=== PATIENT | male | born 1995 ===

== ENCOUNTER 2017-05-04 00:36 | Emergency (ER) | payer OTHER ==
[2017-05-04] MEDS ORDERED: ONDANSETRON 4 MG/2 ML VIAL IVP ONE (00:38)
[2017-05-04] MEDS ORDERED: NS 1,000 ML IV ONE (00:38)
--- NOTE | 2017-05-04 00:40 | EDPHY ---
H & P HPI/ROS: HPI CHIEF COMPLAINT: Alcohol Intoxication HISTORY OF PRESENT ILLNESS: This patient is a 21-year-old male, presents emergency room acute alcohol intoxication by EMS. Patient was drinking gin and vodka this evening. Large amount. His girlfriend called 911 as he was vomiting unable to care for himself. Patient presents emergency room highly intoxicated alcohol. Unable to participate in exam. Past Medical History: Unknown medical history Past Surgical History: Unknown surgical Social History: Large amount of alcohol seeking. Family History: Unknown ROS REVIEW OF SYSTEMS: Limited due to patient's clinical state Exam Constitutional Intoxicated, triage nursing summary reviewed, vital signs reviewed, Sleepy, smells of alcohol Eyes normal conjunctivae and sclera, horizontal beating nystagmus consistent acute alcohol intoxication, otherwise pupils equal and react to light HENT normal inspection, atraumatic, moist mucus membranes, no epistaxis, neck supple/ no meningismus, no raccoon eyes. Respiratory clear to auscultation bilaterally, normal breath sounds, no respiratory distress, no wheezing. Cardiovascular rate normal, regular rhythm, no murmur, no edema, distal pulses normal. Gastrointestinal soft, non-tender, no rebound, no guarding, normal bowel sounds, no distension, no pulsatile mass. Genitourinary no CVA tenderness. Musculoskeletal no midline vertebral tenderness, full range of motion, no calf swelling, no tenderness of extremities, no meningismus, good pulses, neurovascularly intact. Skin pink, warm, & dry, no rash, skin atraumatic. Neurologic sleepy, intoxicated with alcohol,, alert and oriented x 3, AAOx3, moves all 4 extremities equally, motor intact, sensory intact, CN II-XII intact , , normal vision, normal speech. Psychiatric normal mood/affect. Heme/Lymph/Immune no lymphadenopathy. Differential Diagnosis: Includes but is not limited to in a particular order acute alcohol intoxication, alcohol abuse, dehydration, electrolyte abnormality , nausea vomiting from acute alcohol intoxication Medical Decision Making: Plan for patient IV establishment IV fluid bolus, 4 mg IV Zofran for nausea, check basic blood work including electrolytes, serum alcohol level. Monitor for worsening of condition. Monitor for sobriety. Re-evaluation: Serum alcohol 270. Time 1:24 a.m.. 0412: Patient up ambulating stable gait. Clinically sober. Answered all his questions. He speaking coherently answer my questions appropriately. Safe for discharge. Source: EMS Constitutional: Initial Vital Signs Temperature (C) 36.7 C 05/04/17 00:52 Heart Rate 79 05/04/17 00:52 Respiratory Rate 16 05/04/17 00:52 Blood Pressure 109/63 05/04/17 00:52 O2 Sat (%) 96 05/04/17 00:52 O2 Delivery Mode Room Air O2 (L/minute) 2 Allergies/Adverse Reactions: No Known Allergies Allergy (Unverified 05/04/17 00:45) Home Medications: Medication Instructions Recorded NK [No Known Home Meds] 05/04/17 Medical Decision Making - Data Points Laboratory Results: Laboratory Results 05/04/17 00:40 05/04/17 00:40 05/04/17 05/04/17 00:40 00:40 WBC 13.48 10^3/uL H 10^3/uL (3.80-9.50) RBC 4.95 10^6/uL 10^6/uL (4.40-6.38) Hgb 16.4 g/dL g/dL (13.7-17.5) Hct 44.0 % % (40.0-51.0) MCV 88.9 fL fL (81.5-99.8) MCH 33.1 pg pg (27.9-34.1) MCHC 37.3 g/dL H g/dL (32.4-36.7) RDW 12.8 % % (11.5-15.2) Plt Count 248 10^3/uL 10^3/uL (150-400) MPV 10.8 fL fL (8.7-11.7) Neut % (Auto) 46.5 % % (39.3-74.2) Lymph % (Auto) 39.1 % % (15.0-45.0) [place] % (Auto) 9.1 % % (4.5-13.0) Eos % (Auto) 4.3 % % (0.6-7.6) Baso % (Auto) 0.6 % % (0.3-1.7) Nucleat RBC Rel Count 0.0 % % (0.0-0.2) Absolute Neuts (auto) 6.28 10^3/uL 10^3/uL (1.70-6.50) Absolute Lymphs (auto) 5.27 10^3/uL H 10^3/uL (1.00-3.00) Absolute Monos (auto) 1.22 10^3/uL H 10^3/uL (0.30-0.80) Absolute Eos (auto) 0.58 10^3/uL H 10^3/uL (0.03-0.40) Absolute Basos (auto) 0.08 10^3/uL 10^3/uL (0.02-0.10) Absolute Nucleated RBC 0.00 10^3/uL 10^3/uL (0-0.01) Immature Gran % 0.4 % % (0.0-1.1) Immature Gran # 0.05 10^3/uL 10^3/uL (0.00-0.10) Sodium 149 mEq/L H mEq/L (134-144) Potassium 4.0 mEq/L mEq/L (3.5-5.2) Chloride 108 mEq/L mEq/L (97-110) Carbon Dioxide 20 mEq/l L mEq/l (22-31) Anion Gap 21 mEq/L H mEq/L (8-16) BUN 11 mg/dL mg/dL (7-23) Creatinine 0.7 mg/dL mg/dL (0.7-1.3) Estimated GFR > 60 Glucose 130 mg/dL H mg/dL (70-100) Calcium 9.6 mg/dL mg/dL (8.5-10.4) Ethyl Alcohol 270 mg/dL H mg/dL (0-10) Medications Given: Discontinued Medications Sodium Chloride (Ns) 1,000 mls @ 0 mls/hr IV EDNOW ONE; Wide Open PRN Reason: Protocol Stop: 05/04/17 00:39 Last Admin: 05/04/17 00:41 Dose: 1,000 mls Ondansetron HCl (Zofran) 4 mg IVP EDNOW ONE Stop: 05/04/17 00:39 Last Admin: 05/04/17 00:40 Dose: 4 mg Departure - Departure Disposition: Home, Routine, Self-Care Clinical Impression: Alcohol intoxication Qualifiers: Complication of substance-induced condition: uncomplicated Qualified Code(s): F10.920 - Alcohol use, unspecified with intoxication, uncomplicated Condition: Good Instructions: Alcohol Intoxication (ED), Abuse of Alcohol (ED) Referrals: Patient,NotPresent [Primary Care Provider] - As per Instructions
[2017-05-04 00:53] VITALS: RESP 16; O2SAT 96
[2017-05-04 00:53] LABS: % IMMATURE GRANULYOCYTES 0.4 % (0.0-1.1); ABSOLUTE IMMATURE GRANULOCYTES 0.05 10^3/uL (0.00-0.10); ADD DIFF? NO; ADD MORPH? NO; ADD SCAN? NO; ATYPICAL LYMPHOCYTE FLAG 0 (0-99); FRAGMENT RBC FLAG 0 (0-99); HEMOGLOBIN 16.4 g/dL (13.7-17.5); LEFT SHIFT FLG 0 (0-99); LIPEMIA HEMOLYSIS FLAG 90 (0-99); MEAN CELL HEMOGLOBIN 33.1 pg (27.9-34.1); MEAN CELL HEMOGLOBIN CONCENTR. 37.3 g/dL (32.4-36.7); MEAN CELL VOLUME 88.9 fL (81.5-99.8); MEAN PLATELET VOLUME 10.8 fL (8.7-11.7); PLATELET CLUMPS FLAG 0 (0-99); PLATELET COUNT 248 10^3/uL (150-400); RED BLOOD CELL COUNT 4.95 10^6/uL (4.40-6.38); RED CELL DISTRIBUTION WIDTH 12.8 % (11.5-15.2)
[2017-05-04 01:11] LABS: ANION GAP 21 mEq/L (8-16); CALCIUM 9.6 mg/dL (8.5-10.4); CARBON DIOXIDE 20 mEq/l (22-31); CHLORIDE 108 mEq/L (97-110); CREATININE 0.7 mg/dL (0.7-1.3); ETHANOL SERUM 270 mg/dL (0-10); GLOMERULAR FILTRATION RATE > 60; GLUCOSE 130 mg/dL (70-100); SODIUM 149 mEq/L (134-144)
[2017-05-04 04:31] VITALS: PULSE 66
[2017-05-04 04:39] VITALS: BP 113/74; TEMP 97.9
== END 2017-05-04 04:40 | disposition home or self-care (01) ==
LOC: EDUNIT#
DX: F10.920 Alcohol use, unspecified with intoxication, uncomplicated (principal); E86.9 Volume depletion, unspecified
CPT/HCPCS: 96374; G0480